=== PATIENT | female | born 1995 | race American Indian/Alaskan Native ===

== ENCOUNTER 2016-09-08 08:01 | Emergency (ER) | payer SELFPAY ==
[2016-09-08 08:07] VITALS: BP 111/71
== END 2016-09-08 09:34 | disposition left against medical advice (07) ==
LOC: ED 08:01
DX: R05 Cough (principal); R50.9 Fever, unspecified; M79.1 Myalgia; Z53.21 Procedure and treatment not carried out due to patient leaving prior to being seen by health care provider